=== PATIENT | female | born 1990 | race Caucasian/White ===

== ENCOUNTER 2021-06-25 10:14 | Emergency (ER) | payer BC, SELFPAY ==
[2021-06-25 10:30] VITALS: BP 139/79; PULSE 85; RESP 18; TEMP 36.6; O2SAT 99
--- NOTE | 2021-06-25 10:30 | ED.GENADULT ---
HPI - General Adult General Chief complaint: Headache Stated complaint: neck pain shooting up to forehead Time Seen by Provider: 06/25/21 10:40 Source: patient and RN notes reviewed Mode of arrival: ambulatory Limitations: no limitations History of Present Illness HPI narrative: 30-year-old female presents with concern for right-sided posterior neck pain that radiates to her head. She reports it is a burning shooting type of pain that worsens when she turns her head or looks up or down. She reports this occurred after [place]. She reports she has tried Tylenol or Profen intermittently but has not taken that regularly. She denies any direct trauma. She denies weakness, decreased sensation in any extremity, she denies vision changes, nausea or vomiting. MD complaint: Neck pain Related Data Home Medications Medication Instructions Recorded Confirmed levothyroxine 125 mcg PO DAILY 06/25/21 06/25/21 metformin 500 mg PO QID 06/25/21 06/25/21 sertraline 50 mg PO DAILY 06/25/21 06/25/21 Allergies Allergy/AdvReac Type Severity Reaction Status Date / Time No Known Allergies Allergy Verified 06/25/21 10:37 Review of Systems Review of Systems: CONSTITUTIONAL: Denies malaise, chills, sweats, or fever. EYES: Denies visual changes, redness, or discharge. ENT: Denies rhinorrhea, congestion, sinus pain, otalgia or sore throat. CARDIOVASCULAR: Denies chest pain, palpitations, or edema. RESPIRATORY: Denies cough or dyspnea. GASTROINTESTINAL: Denies abdominal pain, nausea, vomiting SKIN: Denies rash or itching. MUSCULOSKELETAL: Reports right-sided neck pain that radiates to the scalp NEUROLOGIC: Denies numbness, weakness. Reports headache. PSYCHIATRIC: Denies anxiety or depression. All systems reviewed & are unremarkable except as noted in HPI and below PMFSH Comments At time of signature, agree with nursing past medical, surgical, social and family history. There is no relevant family history pertinent to the presenting complaint Exam Narrative: GENERAL: Well-appearing, well-nourished, and in no acute distress. HEAD: Normocephalic, atraumatic. EYES: PERRLA, sclera clear, and EOMI. No nystagmus. ENT: Mucous membranes moist. NECK: Supple. No lymphadenopathy. No jugular venous distension, thyromegaly, or carotid bruits. Carotids were easily palpable bilaterally. CHEST: No respiratory distress. Speaks in full sentences. HEART: Regular rate and rhythm. EXTREMITIES: Normal range of motion. No edema. Normal and equal strength and sensation. SKIN: Warm, dry, no visible rash. NEURO: Alert and oriented x3. No focal deficits. Cranial nerves II through XII grossly intact PSYCH: Normal mood and affect Course Course Emergency Course: Patient is aware of diagnosis, understands and agrees to treatment plan. Anticipatory guidance given. Patient agrees to follow-up as directed and is aware of reasons to seek care at the emergency department. Portions of this record may have been created with voice recognition software Level of Care: Express Care Visit Vital Signs Vital signs: Reviewed. Medical Decision Making MDM Narrative Medical decision making narrative: Exam findings show no acute concerns or changes; patient is non-toxic appearing and is in no distress. Patient is appropriate for outpatient treatment and follow-up. Critical Care Time Critical Care Time Critical Care Time: No Discharge Plan Discharge Clinical Impression: Neck pain Patient Disposition: Home, Self-Care Condition: Stable Instructions: Cervical Radiculopathy (ED) Additional Instructions: Please follow up with your Primary Care Doctor within 48-72 hours - call for an appointment. Activity as tolerated. Take Motrin 800mg every 6-8 hours with food for the next 2-3 days, take muscle relaxers every 8 hours as needed for muscle spasm- do not drive or make any important decisions while on this medication for it can make you drowsy.
[2021-06-25 10:39] VITALS: BP 139/79; PULSE 85; RESP 18; TEMP 36.6; O2SAT 99
== END 2021-06-25 10:58 | disposition home or self-care (01) ==
PROVIDERS: Emergency Provider Nurse Practitioner
DX: M54.2 Cervicalgia (principal); E28.2 Polycystic ovarian syndrome; E03.9 Hypothyroidism, unspecified; F41.9 Anxiety disorder, unspecified; F32.A Depression, unspecified
CPT/HCPCS: 99203; G0463